=== PATIENT | female | born 1995 | race African-American/Black ===

== ENCOUNTER 2021-08-09 19:30 | Inpatient (IN) | payer OTHER ==
[2021-08-09] MEDS ORDERED: ELECTROLYTE-148 SOLN 1,000 ML IV SCH (20:30)
[2021-08-09] MEDS ORDERED: DINOPROSTONE 10 MG VAGINAL SUPPOSITORY VG ONE (20:30)
[2021-08-09 21:38] VITALS: BMI 38.7
[2021-08-09 21:47] LABS: BASO % 0.3 % (0-2.0); EOS % 2.1 % (0-4.5); HEMATOCRIT 31.5 % (32.4-45.2); HEMOGLOBIN 10.9 GM/dL (10.7-15.3); LYMPH % 31.6 % (8-40); MCHC 34.5 g/dl (32.0-36.0); MEAN CELL VOLUME 92.7 fl (80-96); MEAN PLT VOLUME 11.6 fl (7.5-11.1); MONO % 8.1 % (3.8-10.2); NEUT % 57.9 % (42.8-82.8); PLATELET COUNT 101 10^3/uL (134-434); RDW 13.8 % (11.6-15.6); WHITE BLOOD COUNT 5.5 K/mm3 (4.0-10.0)
[2021-08-09 21:59] LABS: INR 0.91 (0.83-1.09); PROTHROMBIN TIME (PATIENT) 10.4 SEC (9.7-13.0)
[2021-08-09 22:02] LABS: ACTIVATED PTT 26.3 SECONDS (25.2-36.5)
[2021-08-09] MEDS ORDERED: CITRIC ACID/SODIUM CITRATE 30 ML UNIT-DOSE CUP PO ONE (22:07)
[2021-08-09 22:09] LABS: CALCIUM 9.2 mg/dL (8.5-10.1)
[2021-08-09 22:10] LABS: BLOOD UREA NITROGEN 10.1 mg/dL (7-18)
[2021-08-09] MEDS ORDERED: ONDANSETRON 4 MG/2 ML VIAL IVPUSH PRN (22:10)
[2021-08-09] MEDS ORDERED: morphine SULFATE/PF 1 MG/2 ML (2cc Syringe - QUVA) EP ONE (22:10)
[2021-08-09 22:12] LABS: CREATININE 0.6 mg/dL (0.55-1.3)
[2021-08-09] MEDS ORDERED: SODIUM CHLORIDE 0.9% P/F 10 ML VIAL IJ ONE (22:14)
[2021-08-09] MEDS ORDERED: ceFAZolin SODIUM 1 GM VIAL ONE (22:14)
[2021-08-09] MEDS ORDERED: PHENYLEPHRINE HCL 10 MG/1 ML SINGLE DOSE VIAL ONE (22:33)
[2021-08-09] MEDS ORDERED: OXYTOCIN 10 UNITS/ML VIAL ONE ×2 (22:48→23:26)
[2021-08-09] MEDS ORDERED: MIDAZOLAM HCL 2 MG/2 ML SINGLE DOSE VIAL ONE (22:59)
[2021-08-09] MEDS ORDERED: ONDANSETRON 4 MG/2 ML VIAL ONE (23:00)
[2021-08-09 23:04] LABS: HIV INTERPRETATION NEGATIVE (NEGATIVE)
[2021-08-09] MEDS ORDERED: ACETAMINOPHEN 325 MG TABLET (FP) PO PRN (23:38)
[2021-08-09] MEDS ORDERED: IBUPROFEN 800 MG/8 ML IJ IVPB PRN (23:38)
[2021-08-09] MEDS ORDERED: METHYLERGONOVINE MALEATE 0.2 MG/1 ML AMP IM PRN (23:38)
[2021-08-10] MEDS ORDERED: OXYTOCIN 20 UNITS in 0.9% NS 20 UNIT/1,000 ML INFUS.BAG IV ONE (01:21)
[2021-08-10] MEDS: OXYTOCIN 20 UNITS in 0.9% NS 20 UNIT/1,000 ML INFUS.BAG IV SCH ×2 (01:40→03:53)
[2021-08-10 06:11] LABS: BASO % 0.4 % (0-2.0); EOS % 0.9 % (0-4.5); HEMATOCRIT 27.2 % (32.4-45.2); HEMOGLOBIN 9.2 GM/dL (10.7-15.3); LYMPH % 27.4 % (8-40); MCH 31.4 pg (25.7-33.7); MCHC 33.9 g/dl (32.0-36.0); MEAN CELL VOLUME 92.9 fl (80-96); MEAN PLT VOLUME 11.7 fl (7.5-11.1); MONO % 8.2 % (3.8-10.2); NEUT % 63.1 % (42.8-82.8); PLATELET COUNT 92 10^3/uL (134-434); RBC 2.93 M/mm3 (3.60-5.2); RDW 13.6 % (11.6-15.6); WHITE BLOOD COUNT 8.1 K/mm3 (4.0-10.0)
[2021-08-10] MEDS: FERROUS SO4 325 MG TABLET (FP) PO SCH ×2 (09:22→21:04)
[2021-08-10] MEDS: PRENATAL VITAMINS W/ FOLIC ACID TABLET (FP) PO SCH (10:29)
[2021-08-10] MEDS ORDERED: oxyCODONE HCL 5 MG TABLET PO PRN (11:38)
[2021-08-10] MEDS: SIMETHICONE 80 MG TAB.CHEW (FP) PO PRN (17:56)
[2021-08-10] MEDS: IBUPROFEN 600 MG TABLET (FP) PO PRN (21:04)
[2021-08-10] MEDS: SENNOSIDES/DOCUSATE COMBO (SENNA PLUS) TABLET (UD) PO PRN (21:04)
[2021-08-10] MEDS ORDERED: BISACODYL 10 MG SUPP.RECT RC PRN (23:38)
[2021-08-11] MEDS: SIMETHICONE 80 MG TAB.CHEW (FP) PO PRN ×4 (00:18→20:35)
[2021-08-11] MEDS: oxyCODONE HCL 5 MG TABLET PO PRN ×2 (00:18→04:13)
[2021-08-11] MEDS: IBUPROFEN 600 MG TABLET (FP) PO PRN ×3 (08:27→22:21)
[2021-08-11] MEDS: PRENATAL VITAMINS W/ FOLIC ACID TABLET (FP) PO SCH (10:54)
[2021-08-11] MEDS: FERROUS SO4 325 MG TABLET (FP) PO SCH ×2 (10:54→21:25)
[2021-08-11 11:10] LABS: SARS-CoV-2 NAA Not Detected (Not Detected)
[2021-08-11] MEDS: SENNOSIDES/DOCUSATE COMBO (SENNA PLUS) TABLET (UD) PO PRN (20:35)
[2021-08-11 21:19] VITALS: TEMP 98.4
[2021-08-12] MEDS: SIMETHICONE 80 MG TAB.CHEW (FP) PO PRN (06:23)
[2021-08-12] MEDS: IBUPROFEN 600 MG TABLET (FP) PO PRN (08:16)
[2021-08-12] MEDS: FERROUS SO4 325 MG TABLET (FP) PO SCH (09:37)
[2021-08-12] MEDS: PRENATAL VITAMINS W/ FOLIC ACID TABLET (FP) PO SCH (09:37)
[2021-08-12 10:03] VITALS: BP 111/80; PULSE 90
== END 2021-08-12 12:25 | disposition home or self-care (01) | DRG 540 ==
LOC: JLDR 19:30 → J3W 08-10 01:40
PROVIDERS: ADMIT Obstetrics & Gynecology; ATTEND Obstetrics & Gynecology
PROC: 10D00Z1 Extraction of Products of Conception, Low, Open Approach (ICD-10-PCS; principal; 2021-08-09)
DX: O36.8330 Maternal care for abnormalities of the fetal heart rate or rhythm, third trimester, not applicable or unspecified (principal); O48.0 Post-term pregnancy; Z3A.40 40 weeks gestation of pregnancy; O99.019 Anemia complicating pregnancy, unspecified trimester; Z37.0 Single live birth
CPT/HCPCS: 36415; 80048; 85025; 85610; 85730; 86780; 86850; 86900; 86901; 87389; 88307-TC; C9803-CS; U0003; U0005